=== PATIENT | female | born 1930 | race Asian ===

== ENCOUNTER → 2017-12-26 | Outpatient (CLI) | payer MEDICARE, OTHER ==
[~2017-12-26] MED LIST: AMLO-512 PO; ATEN100T PO; FAMO20 PO; LISI-661 PO; OMEP20 PO
== END | disposition home or self-care (01) ==
LOC: RADPV 08:35
PROVIDERS: ATTEND Internal Medicine
DX: N28.1 Cyst of kidney, acquired (principal)
CPT/HCPCS: 76700; 76856